=== PATIENT | female | born 1995 | race Caucasian/White ===

== ENCOUNTER 2018-06-02 21:50 | Emergency (ER) | payer BC ==
[~2018-06-02] VITALS: Ht 177.8 cm; Wt 119.9 kg
[2018-06-02 23:31] VITALS: BP 139/88
== END 2018-06-02 23:31 | disposition home or self-care (01) ==
LOC: EME 21:50
DX: M25.562 Pain in left knee (principal); M25.462 Effusion, left knee; Z90.49 Acquired absence of other specified parts of digestive tract; Z91.018 Allergy to other foods
CPT/HCPCS: 73564; 99281; 99284